=== PATIENT | male | born 1985 | race Caucasian/White ===

== ENCOUNTER 2016-12-02 20:54 | Emergency (ER) | payer SELFPAY ==
[2016-12-02 20:58] VITALS: BP 144/86; PULSE 103; RESP 20; TEMP 97.4; O2SAT 95
[2016-12-02] MEDS ORDERED: MORPHINE SULFATE 4 MG/ML INJ IV PUSH ONE (21:30)
[2016-12-02] MEDS ORDERED: KETOROLAC TROMETHAMINE 30 MG/ML (IVP) VIAL IV PUSH ONE (21:30)
[2016-12-02] MEDS ORDERED: ONDANSETRON HCL 4 MG/2 ML VIAL IV PUSH ONE (21:30)
[2016-12-02 21:49] VITALS: RESP 16
--- NOTE | 2016-12-02 21:50 | RADRPT ---
EXAM DATE/TIME: 12/02/2016 21:30 [place] COMPARISON: No previous studies available for comparison. INDICATIONS : Left Side Rib Pain after pulling injury while tree pruning. Anterior Upper Ribs most painful radiati ng posteriorly. MEDICAL HISTORY : None. SURGICAL HISTORY : None. ENCOUNTER: Initial ACUITY: 3 days PAIN SCORE: 10/10 LOCATION: Left Ribs. FINDINGS: Multiple views of the left ribs were performed. There is no evidence of displaced fracture. No dest ructive lesions or areas of periosteal thickening are seen. Expiratory view of the chest is negative for pneumothorax. The mediastinal structures are midline. CONCLUSION: Unremarakble examination of the left ribs and chest. Jamal Peterson MD on December 02, 2016 at 21:48 Board Certified Radiologist. This report was verified electronically.
--- NOTE | 2016-12-02 21:58 | PD ---
HPI Chief Complaint: Chest Pain Time Seen by Provider: 21:51 Travel History International Travel<30 days: No Contact w/Intl Traveler<30days: No Traveled to known affect area: No History of Present Illness HPI 30-year-old male that presents to the ED for evaluation of left rib pain and chest pain for the past 2-3 days. 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 Per patient about 2-3 days ago he was working on a tree and one of the branches hit him on the chest. At the time he didn't think much of it and he had some ache as well as from discomfort but the pain has progressively getting worse and is not getting better. Per patient he is concerned because the pain gets worse when he takes a deep breath and sometimes raise to the back. Per patient he denies any medical problems and denies any recent travel. Denies any IV drug abuse or any history of alcohol abuse. He states that his pain is currently severe sharp 8 out of 10. Per patient he comes and goes and is worse with movement. No abdominal pain. No nausea or vomiting. No allergies to medication. Denies any other injury. Patient hasn't taken anything for this. Per patient his been continuing to work and trying to "muscle through the pain ". PFSH Past Medical History Medical History: Denies Significant Hx Immunizations Current: Yes Tetanus Vaccination: > 5 Years Influenza Vaccination: No Past Surgical History Surgical History: No Previous Surgery Social History Alcohol Use: No Tobacco Use: Yes Substance Use: No Allergies-Medications (Allergen,Severity, Reaction): Coded Allergies: No Known Allergies (Unverified , 12/02/16) Reported Meds & Prescriptions Reported Meds & Active Scripts Active Diclofenac Sodium DR (Diclofenac Sodium) 75 Mg Tabdr 75 Mg PO BID PRN Lortab (Hydrocodone-Acetaminophen) 5-325 Mg Tab 1 Tab PO Q6H PRN Review of Systems General / Constitutional: No: Fever, Chills, Weight Gain, Weight Loss, Other Eyes: No: Diploplia, Blurred Vision, Photophobia, Drainage, Redness, Foreign Body Sensation, Pain, Tearing, Blind Spots, Visual changes, Blindness, Other HENT: No: Headaches, Vertigo, Lightheadedness, Sore Throat, Rhinitis, Rhinorrhea, Congestion, Nosebleed, Neck Stiffness, Neck Pain, Masses, Gingival Bleeding, Dental Difficulties, Ear Discharge, Earache, Other Cardiovascular: Positive: Chest Pain or Discomfort, No: Palpitations, Irregular Rhythm, Tachycardia, Diaphoresis, Syncope, Dyspnea on exertion, Varicosities, Edema, Cyanosis, Varicosities, Phlebitis, Claudication, Other Respiratory: No: Cough, Shortness of Breath, Wheezing, Sneezing, Orthopnea, Hemoptysis, Stridor, Night Sweats, Pleuritic Pain, Other Gastrointestinal: No: Nausea, Vomiting, Diarrhea, Abdominal Pain, Hematemesis, Hematochezia, Constipation, Changes in Bowel Habits, Indigestion, Dysphagia, Loss of Appetite, Other Genitourinary: No: Urgency, Frequency, Dysuria, Nocturia, Hematuria, Decreased Urinary Output, Oliguria, Hesitancy, Dribbling, Incontinence, Pelvic Pain, Flank Pain, Dyspareunia, Discharge, Dysmenorrhea, Menorrhagia, Metorrhagia, Vaginal Bleeding, Other Musculoskeletal: Positive: Pain, No: Myalgias, Arthralgias, Limited ROM, Weakness, Cramping, Edema, Atrophy, Other Skin: No Rash, No Itching, No Dryness, No Lumps, No Hives, No Change in Pigmentation, No Change in nails, No Alopecia, No Lesions, No Breast Lumps, No Breast Tenderness, No Breast Swelling, No Other Neurologic: No: Weakness, Dizziness, Syncope, Focal Abnormalities, Coordination Problem, Tremor, Ataxia, Headache, Change in Mentation, Slurred Speech, Paresthesia, Incontinence, Seizures, Sensory Disturbance, Other Psychiatric: No: Anxiety, Depression, Suicidal Ideations, Disorder of Thought, Mood Disorder, Substance Abuse, Homicidal Ideation, Other Endocrine: No: Heat Intolerance, Cold Intolerance, Polyuria, Polydipsia, Other Hematologic/Lymphatic: No: Easy Bruising, Lymph Node Enlargement, Other Physical Exam Narrative GENERAL: SKIN: Warm and dry. HEAD: Atraumatic. Normocephalic. EYES: Pupils equal and round. No scleral icterus. No injection or drainage. ENT: No nasal bleeding or discharge. Mucous membranes pink and moist. NECK: Trachea midline. No JVD. CARDIOVASCULAR: Regular rate and rhythm. No murmurs, history, S4. Pain is reproducible with touch on the left side of the chest especially with movement. Deep breaths make it worse as well. RESPIRATORY: No accessory muscle use. Clear to auscultation. Breath sounds equal bilaterally. GASTROINTESTINAL: Abdomen soft, non-tender, nondistended. Hepatic and splenic margins not palpable. MUSCULOSKELETAL: Extremities without clubbing, cyanosis, or edema. No obvious deformities. Full range of motion of the upper and lower extremities bilaterally. 2+ pulses bilaterally. NEUROLOGICAL: Awake and alert. No obvious cranial nerve deficits. Motor grossly within normal limits. Five out of 5 muscle strength in the arms and legs. Normal speech. PSYCHIATRIC: Appropriate mood and affect; insight and judgment normal. Data Data Last Documented VS Vital Signs Date Time Temp Pulse Resp B/P Pulse Ox O2 Delivery O2 Flow Rate FiO2 12/02/16 21:49 16 12/02/16 21:14 12/02/16 20:58 97.4 144/86 95 Room Air Orders Ribs, Uni (W/Exp Cxr-Min 3vw) (12/02/16 ) Morphine Inj (Morphine Inj) (12/02/16 21:30) Ondansetron Inj (Zofran Inj) (12/02/16 21:30) Ketorolac Inj (Toradol Inj) (12/02/16 21:30) Electrocardiogram (12/02/16 21:12) MDM Medical Decision Making Medical Screen Exam Complete: Yes Emergency Medical Condition: Yes Medical Record Reviewed: Yes Interpretation(s) xray of left ribs negative Differential Diagnosis Fracture versus sprain versus strain versus costochondritis versus chest contusion Narrative Course 30-year-old male that presents to the ED for evaluation of chest pain. Patient was properly examined and was found to have signs and symptoms consistent with chest discomfort. X-rays were ordered. This was negative. Patient was medicated with good relief. Patient was reassured. At this time we'll treat patient with Lortab and diclofenac sodium. Patient was told to reduce workouts. Follow-up with PCP. Given note for work. See ED worsening symptoms. Diagnosis Primary Impression: Chest wall contusion Qualified Code: S20.212A - Chest wall contusion, left, initial encounter Patient Instructions: Narcotic given in the ED, General Instructions Departure Forms: Tests/Procedures, Work Release Enter return to work date: Dec 06, 2016 Additional Instructions: Take medications as prescribed. Follow-up with PCP. See ED for any worsening symptoms. Do not drink or drive while taking pain medication. Apply ice or heat as needed for pain Med/Other Pt SpecificInfo: Prescription(s) given Scripts Diclofenac Sodium DR 75 Mg Tabdr75 Mg PO BID PRN (PAIN SCALE 1 TO 10) #20 TAB Prov:Luis Reynoso MD 12/02/16 Hydrocodone-Acetaminophen (Lortab)5-325 Mg Tab1 Tab PO Q6H PRN (PAIN) #20 TAB Prov:Luis Reynoso MD 12/02/16 Disposition: 01 DISCHARGE HOME Condition: Stable Christopher Yun Dec 02, 2016 21:58
[2016-12-02] MEDS ORDERED: DICL75TA PO (21:59)
[2016-12-02] MEDS ORDERED: HYDR-3533 PO (21:59)
--- NOTE | 2016-12-03 17:24 | EKG ---
Date Performed: 12/02/2016 Time Performed: 21:12:37 PTAGE: 30 years EKG: SINUS TACHYCARDIA NONSPECIFIC T-WAVE ABNORMALITY ABNORMAL RHYTHM ECG NO PREVIOUS TRACING DOCTOR: Pita Burnett Interpretating Date/Time 12/03/2016 17:17:13
== END 2016-12-02 22:19 | disposition home or self-care (01) ==
LOC: NEPE 20:54
DX: S20.219A Contusion of unspecified front wall of thorax, initial encounter (principal); R94.31 Abnormal electrocardiogram [ECG] [EKG]; W20.8XXA Other cause of strike by thrown, projected or falling object, initial encounter; Y99.0 Civilian activity done for income or pay; Z72.0 Tobacco use
CPT/HCPCS: 71101; 93005; 96374; 96375; 99283; J1885; J2270; J2405